=== PATIENT | female | born 1980 | race Caucasian/White ===

== ENCOUNTER 2021-07-06 15:44 | Outpatient (CLI) | payer BC, SELFPAY ==
[2021-07-12 20:20] LABS: HPV APTIMA, High Risk Negative (Negative)
== END 2021-07-06 23:59 | disposition short-term general hospital (02) ==
LOC: LABSPEC 15:46
PROVIDERS: Referring Provider Nurse Practitioner Women's Health; Visit Provider Nurse Practitioner Women's Health
DX: N93.9 Abnormal uterine and vaginal bleeding, unspecified (principal)
CPT/HCPCS: 87624; 88175; G0145

== ENCOUNTER 2021-08-29 13:36 | Outpatient (CLI) | payer BC, SELFPAY ==
--- NOTE | 2021-08-29 13:46 | US_ITS ---
History: [facility] Pelvic ultrasound: Findings: Endovaginal ultrasound imaging of the pelvis demonstrates the uterus to measure 8.4 cm in length and retroverted. Endometrial thickness is 10 mm. 4.5 cm left adnexal cyst noted which may be ovarian or paraovarian in nature. Right ovary is normal in size, echogenicity and perfusion measuring 2.4 x 2.7 x 1.9 cm. No free pelvic fluid. IMPRESSION: 4.5 cm left adnexal cyst. SRU Consensus Conference guidelines (Castañeda, et. al. Radiology 2019;293:359-371) suggest that this follicle or simple cyst is almost certainly benign and no follow-up of this cyst is necessary. at 1105 Reported and signed by: Yuri Zee MD Electronically Signed: Yuri Zee MD at 11:04 EST , US/Pelvic (Non )
--- NOTE | 2021-08-29 13:46 | US_ITS ---
History: [facility] Pelvic ultrasound: Findings: Endovaginal ultrasound imaging of the pelvis demonstrates the uterus to measure 8.4 cm in length and retroverted. Endometrial thickness is 10 mm. 4.5 cm left adnexal cyst noted which may be ovarian or paraovarian in nature. Right ovary is normal in size, echogenicity and perfusion measuring 2.4 x 2.7 x 1.9 cm. No free pelvic fluid. IMPRESSION: 4.5 cm left adnexal cyst. SRU Consensus Conference guidelines (Castañeda, et. al. Radiology 2019;293:[id number]) suggest that this follicle or simple cyst is almost certainly benign and no follow-up of this cyst is necessary. at 1105 Reported and signed by: Yuri Zee MD Electronically Signed: Yuri Zee MD at 11:04 EST , US/Transvaginal Non-
== END 2021-08-29 23:59 | disposition home or self-care (01) ==
PROVIDERS: Visit Provider Nurse Practitioner Women's Health
DX: N93.9 Abnormal uterine and vaginal bleeding, unspecified (principal)
CPT/HCPCS: 76830; 76856

== ENCOUNTER 2023-03-04 18:33 | Emergency (ER) | payer OTHER, SELFPAY ==
[2023-03-04] VITALS (7 sets, daily range): BP systolic 108–134; BP diastolic 66–81; PULSE 76–109; RESP 18–27; TEMP 36.1–36.6; O2SAT 96–100; BMI 26.6
--- NOTE | 2023-03-04 18:57 | EX.ED.GENINJ ---
HPI History of Present Illness Chief Complaint: Disclocation Informant: patient and spouse/S.O. Narrative Narrative: 43-year-old female states that about 1 hour prior to arrival she did a back flip off a floating dock. She states that she has a history of bilateral shoulder dislocations. She last dislocated her right shoulder about 2 weeks ago in her sleep. She states that typically she can get her shoulders back in the joint with some assistance by her significant other but was unable to do so this time. She has had 1 alcoholic drink today. She has not had anything to eat or drink for the past at least 3 hours. She has had no prior problems with anesthesia. She states she has seen Dr. Herron for left shoulder surgery in the past. She states that she was also referred to somebody in [place] for additional evaluation/surgery. She denies any other injuries. She is right-handed. PFSH PFSH Home Medications norethindrone acetate 5 mg tablet (Aygestin) 5 mg PO .COMPLEX #45 tabs 07/06/21 [Rx Last Taken Unknown] albuterol sulfate 90 mcg/actuation aerosol inhaler (ProAir HFA) 2 puff inhalation Q6H PRN shortness of breath or wheezing #8.5 grams 10/10/21 [Rx Last Taken Unknown] azithromycin 250 mg tablet See Rx Instructions PO .COMPLEX #6 tabs 10/10/21 [Rx Last Taken Unknown] hydrocodone-acetaminophen 5-325mg 5mg-325mg 1 tab PO Q6H PRN PRN Pain 3 days #12 TABLETS 03/04/23 [Rx Last Taken Unknown] Allergy/AdvReac Type Severity Reaction Status Date / Time No Known Allergies Allergy Verified 03/04/23 18:35 Family History Father Colon cancer Other Breast cancer Diabetes Hypertension Surgical History H/O shoulder surgery Hx laparoscopic cholecystectomy Social History household members: spouse housing: house current occupational status: employed pets and animals: Yes Smoking Status: Current some day smoker tobacco type: cigarettes second hand exposure: No alcohol intake: current alcohol intake frequency: holidays/special occasions only substance use type: does not use seatbelt use: always do you feel safe at home: Yes additional social history: - Wesley RICHIE ROS ED Constitutional Constitutional ED: Denies chills, fever(s) or weight loss Eyes Eyes: Denies change in vision or diplopia ENT ENT ED: Denies ear pain, rhinorrhea or sore throat Cardiovascular Cardiovascular: Denies chest pain, orthopnea, palpitations or racing heartbeat Respiratory/Chest Respiratory/Chest: Denies cough, dyspnea or orthopnea Gastrointestinal Gastrointestinal: Denies abdominal pain, diarrhea, nausea or vomiting Genitourinary Genitourinary ED: Denies dysuria, hematuria or urinary frequency Musculoskeletal Musculoskeletal: Reports other Details: Right shoulder pain ; Denies arthralgias, back pain, myalgias or neck pain Integumentary Denies abscess or rash Neurologic Neurologic: Denies headache(s) or weakness Psychiatric Psychiatric: Denies anxiety, depression, suicidal ideation or suicidal thoughts Endocrine Endocrinology: Denies polydipsia, polyphagia or polyuria Allergic/Immunologic Allergic/Immunologic ED: Denies mouth swelling, tongue swelling or urticaria EXAM Physical Exam Const Vital Signs: 03/04/23 18:35 03/04/23 20:04 03/04/23 20:05 Temperature 96.9 F L 97.9 F Temperature Source Temporal Pulse Rate 109 H 83 Pulse Rate [1 (Initial Baseline)] 83 Pulse Rate [2] 81 Pulse Rate [3] 80 Respiratory Rate 18 27 H Respiratory Rate [1 (Initial Baseline)] 27 H Respiratory Rate [2] 20 H Respiratory Rate [3] 20 H Blood Pressure 124/76 H 134/77 H Blood Pressure [1 (Initial Baseline)] 134/77 H Blood Pressure [2] 134/73 H Blood Pressure [3] 130/72 H Blood Pressure Mean 92 Pulse Ox 100 100 Oxygen Delivery Method Room Air Nasal Cannula Oxygen Delivery Method [1 (Initial Baseline)] Nasal Cannula Oxygen Delivery Method [2] Nasal Cannula Oxygen Delivery Method [3] Nasal Cannula Oxygen Flow Rate (L/min) 2 Oxygen Flow Rate (L/min) [1 (Initial Baseline)] 2 Oxygen Flow Rate (L/min) [2] 2 Oxygen Flow Rate (L/min) [3] 2 03/04/23 20:15 03/04/23 20:19 03/04/23 20:25 Temperature Temperature Source Pulse Rate Pulse Rate [1 (Initial Baseline)] Pulse Rate [2] Pulse Rate [3] Respiratory Rate Respiratory Rate [1 (Initial Baseline)] Respiratory Rate [2] Respiratory Rate [3] Blood Pressure Blood Pressure [1 (Initial Baseline)] Blood Pressure [2] Blood Pressure [3] Blood Pressure Mean Pulse Ox Oxygen Delivery Method Room Air Room Air Room Air Oxygen Delivery Method [1 (Initial Baseline)] Oxygen Delivery Method [2] Oxygen Delivery Method [3] Oxygen Flow Rate (L/min) Oxygen Flow Rate (L/min) [1 (Initial Baseline)] Oxygen Flow Rate (L/min) [2] Oxygen Flow Rate (L/min) [3] Positive well nourished and well developed General Appearance ED: well developed HEENT Reports normocephalic, head/scalp atraumatic and moist mucous membranes Eyes PERRL and EOMs intact bilaterally Neck no lymphadenopathy, supple and no JVD Resp normal respiratory effort and clear to auscultation bilaterally Cardio regular rate, regular rhythm and no murmurs GI normal to inspection, nondistended, normoactive bowel sounds and non-tender Palpation: soft Back/Spine no CVA tenderness, normal ROM, normal to inspection and no thoracic nor lumbar tenderness Extremity Extremity Narrative: Right shoulder tender to palpation. Limited range of motion. She holds the arm flexed at the elbow and internally rotated against the body. Neurovascular intact distal. General Extremety ED: Negative for edema General Extremity: Negative for edema Neuro oriented x3 and CN's II-XII intact bilaterally Neuro Narrative: Sensory exam is normal Sensorium / Orientation: alert Motor Exam: strength 5/5 throughout Psych mental status grossly normal Mood & Affect: Negative for depressed or tearful Skin no rashes or lesions noted and no wounds PROC Procedures Procedural Sedation 1 (Initial Baseline): Consent Signed: Yes Any Problems With Anesthesia: No You/Your family experience fever (hyperthermia) w/anesthesia: No Sedation medication: Propofol Dose: 1 (mg/kg) Route: IV Total Moderate Sedation Units: 64 (mg) Maliampati Score: Class II ASA Classification: I MDM MDM MDM Narrative Medical decision making narrative: My interpretation of the plain films of the right shoulder demonstrates a anterior shoulder dislocation. Patient received morphine and Zofran. provided written informed consent and patient provided oral informed consent for the use of propofol for procedural sedation for the closed reduction of shoulder dislocation. Patient was prepped for procedural sedation in the usual manner. She received supplemental oxygen. Timeout was performed. Patient received 1 mg/kg bolus of propofol followed by 0.5 mg/kg bolus until adequate sedation was achieved and maintained. Using gentle traction and using the Milch technique the shoulder was easily reduced. Patient was placed in a sling and swath. She was allowed to recover without incident. There is no hypotension apnea or hypoxemia events noted during procedure. She remains neurovascular intact. My interpretation of the plain films of the postreduction shoulder are adequate reduction of the humerus. I will write for the patient for pain medication at home. She is to follow-up with orthopedics. History & Record Review Discussion w/independent historian: Patient and Significant other Radiography Diagnostic Testing: Clinical Impression(s) from Imaging Studies Shoulder X-Ray 03/04/23 19:00 IMPRESSION: Medial shoulder dislocation. Electronically Signed: Manjinder Caba MD at 19:18 EDT , Shoulder X-Ray 03/04/23 20:25 IMPRESSION: Successful reduction Electronically Signed: Manjinder Caba MD at 20:38 EDT , Discharge Plan Triage Chief Complaint: Disclocation ED Provider: Magdiel Anaya Dx/Rx/DC Orders Clinical Impression: Anterior dislocation of right shoulder Instructions: ED Dislocation: Shoulder (Reduced), ED Sling and Swathe Prescriptions: New hydrocodone-acetaminophen [hydrocodone-acetaminophen] 5-325 mg tablet 1 tab PO Q6H PRN PRN (Reason: Pain) 3 Days Qty: 12 0RF No Action norethindrone acetate [Aygestin] 5 mg tablet 5 mg PO .COMPLEX Qty: 45 0RF Rx Instructions: 5 mg PO tid until bleeding stops X 24 hr then bid to finish Rx azithromycin 250 mg tablet See Rx Instructions PO .COMPLEX Qty: 6 0RF Rx Instructions: take 500 mg today (day 1), then 250 mg for 4 days (days 2-5) PO albuterol sulfate [ProAir HFA] 90 mcg/actuation HFA aerosol inhaler 2 puff inhalation Q6H PRN (Reason: shortness of breath or wheezing) Qty: 8.5 0RF Primary Care Provider: Care Physician,No Primary Referrals: Farhad Herron DO [Med Staff - Active Staff] - As soon as possible Care Physician,No Primary [Primary Care Provider] -
[2023-03-04] MEDS: Morphine 4 MG/ML Syringe IV (18:58)
[2023-03-04] MEDS: Ondansetron 4 MG/2 ML Vial IV (18:58)
--- NOTE | 2023-03-04 19:00 | RAD_ITS ---
STUDY: XR Shoulder Min 2 Views REASON FOR EXAM: Female, 43 years old. dislocation TECHNIQUE: XR Shoulder Min 2 Views RIGHT COMPARISON: None. FINDINGS: Medial shoulder dislocation. Normal acromioclavicular joint. Normal acromion. Normal humeral head and visualized proximal humerus. The soft tissue structures are unremarkable. Normal visualized pulmonary apex. RAD/Shoulder min 2 Views IMPRESSION: Medial shoulder dislocation. Electronically Signed: Manjinder Caba MD at 19:18 EDT ,
--- NOTE | 2023-03-04 20:25 | RAD_ITS ---
STUDY: XR Shoulder Min 2 Views REASON FOR EXAM: Female, 43 years old. Reduction TECHNIQUE: XR Shoulder Min 2 Views RIGHT COMPARISON: Study done earlier. FINDINGS: Normal glenohumeral articulation. Normal acromioclavicular joint. Normal acromion. Normal humeral head and visualized proximal humerus. The soft tissue structures are unremarkable. Normal visualized pulmonary apex. RAD/Shoulder min 2 Views IMPRESSION: Successful reduction Electronically Signed: Manjinder Caba MD at 20:38 EDT ,
[2023-03-04] MEDS: Propofol 200 MG/20 ML Vial IV BOLUS (20:45)
== END 2023-03-04 21:30 | disposition home or self-care (01) ==
LOC: ED 19:14
PROVIDERS: Emergency Provider Emergency Medicine; Visit Provider Emergency Medicine
DX: S43.014A Anterior dislocation of right humerus, initial encounter (principal); Y93.39 Activity, other involving climbing, rappelling and jumping off; X58.XXXA Exposure to other specified factors, initial encounter; F17.210 Nicotine dependence, cigarettes, uncomplicated
CPT/HCPCS: 23650; 73030; 96374; 96375; 99285; J7030; A4216; J2405

== ENCOUNTER 2024-04-12 12:54 | Emergency (ER) | payer OTHER, SELFPAY ==
[2024-04-12 12:54] VITALS: BP 121/77; PULSE 96; RESP 16; TEMP 36.7; O2SAT 100; BMI 25.3
--- NOTE | 2024-04-12 13:15 | RAD_ITS ---
STUDY: X-RAY - RIGHT SHOULDER REASON FOR EXAM: Female, 44 years old. Dislocated TECHNIQUE: 2 view(s) of the shoulder. COMPARISON: Including March 04, 2023 FINDINGS: There is anterior inferior dislocation at the glenohumeral articulation. Normal acromioclavicular joint. Normal acromion. Normal humeral head and visualized proximal humerus. The soft tissue structures are unremarkable. There is no displaced fracture seen. Normal visualized pulmonary apex. RAD/Shoulder min 2 Views IMPRESSION: Recurrent glenohumeral dislocation. Electronically Signed: Adán Lorenzo MD at 14:02 EDT ,
--- NOTE | 2024-04-12 13:18 | EDS_ITS ---
HPI History of Present Illness HPI Narrative: 44-year-old female dislocated her right shoulder. She is left-hand dominant. She has a history of bilateral shoulder dislocations is already had surgery to repair of the left and has pending upcoming surgery for the right. She was just putting her close on today when she dislocated her shoulder. Denies any fall or injury. No other complaints. Chief Complaint: Upper Extremity Injury Informant: patient and spouse/S.O. Onset/Context/Timing Onset: Today Context: Sudden Onset Timing: Continuous Quality of Pain: Sharp Current Severity: Moderate Maximum Severity: Moderate Associated Symptoms Associated Symptoms: Negative for Parasthesia or Weakness Narrative Narrative: 44-year-old female dislocated her right shoulder putting on her close today. She has a history of bilateral shoulder dislocations. Denies any other complaints. Prior similar symptoms: Yes Recent Illness/Hospitalization: No PFSH PFSH Home Medications ?Medication ?Instructions ?Recorded ?Last Taken ?Type norethindrone acetate 5 mg tablet 5 mg PO .COMPLEX #45 tabs 07/06/21 Unknown Rx (Aygestin) albuterol sulfate 90 mcg/actuation 2 puff inhalation Q6H PRN 10/10/21 Unknown Rx aerosol inhaler (ProAir HFA) shortness of breath or wheezing #8.5 grams azithromycin 250 mg tablet See Rx Instructions PO .COMPLEX #6 10/10/21 Unknown Rx tabs hydrocodone-acetaminophen 5-325mg 1 tab PO Q6H PRN PRN Pain 3 days 03/04/23 Unknown Rx 5mg-325mg #12 TABLETS Allergy/AdvReac Type Severity Reaction Status Date / Time No Known Allergies Allergy Verified 04/12/24 12:54 Family History Father Colon cancer Other Breast cancer Diabetes Hypertension Surgical History Hx laparoscopic cholecystectomy H/O shoulder surgery Social History household members: spouse housing: house current occupational status: employed pets and animals: Yes Smoking Status: Current some day smoker tobacco type: cigarettes second hand exposure: No alcohol intake: current alcohol intake frequency: holidays/special occasions only substance use type: does not use seatbelt use: always do you feel safe at home: Yes additional social history: - Wesley QUIROZ ROS ED ROS Narrative Denies recent illness. Constitutional Constitutional ED: Denies fever(s) Eyes Eyes: Denies blurry vision ENT ENT ED: Denies ear pain Cardiovascular Cardiovascular: Denies chest pain Respiratory/Chest Respiratory/Chest: Denies cough Gastrointestinal Gastrointestinal: Denies abdominal pain Genitourinary Genitourinary ED: Denies dysuria Musculoskeletal Musculoskeletal: Denies back pain Integumentary Denies abscess Neurologic Neurologic: Denies headache(s) Psychiatric Psychiatric: Denies anxiety Endocrine Endocrinology: Denies cold intolerance Hematologic/Lymphatic Hematologic/Lymphatic: Denies easy bleeding Allergic/Immunologic Allergic/Immunologic ED: Denies mouth swelling EXAM Physical Exam Narrative Exam Narrative: Well-appearing 44-year-old female. Vital signs stable afebrile. HEENT exam unremarkable. Neck nontender. Lungs clear to auscultation bilaterally. Heart regular rate and rhythm rate about 95 no murmur. Chest wall and ribs nontender. Abdomen soft nontender. Back nontender. Left upper and both lower extremities are nontender normal range of motion. Right shoulder she has it flexed and internally rotated. She has a right elbow flexed. Her right hand is neurovascularly intact with 5 out of 5 hand hose cutter strength. Touch sensation. Radial pulse. She will not move the right upper arm due to the pain in the shoulder. She is awake and alert. Const Vital Signs: 04/12/24 12:54 Temperature 98.1 F Temperature Source Oral Pulse Rate 96 Respiratory Rate 16 Blood Pressure 121/77 H Blood Pressure Mean 91 Pulse Ox 100 Oxygen Delivery Method Room Air Positive well nourished and well developed; Negative for obese, cachectic, contractures or unkempt General Appearance ED: well developed; Negative for unkempt, cachectic, contractures, cyanotic, diaphoretic or NAD Nutritional Appearance: Negative for cachectic or obese HEENT Reports moist mucous membranes normocephalic and atraumatic; Negative for trauma or tenderness Eyes PERRL and EOMs intact bilaterally Neck full ROM and supple General: Negative for tenderness Lymph Lymphatic: Negative for other Chest Wall inspection of chest normal and palpation of chest normal Chest: Negative for other Resp clear to auscultation bilaterally Auscultation: Negative for rales, rhonchi, wheezes or diminished lung sounds Cardio regular rate, regular rhythm, S1 normal heart sound, S2 normal heart sound and no murmurs Rate: Negative for bradycardia or tachycardic Rhythm: Negative for abnormal rhythm GI non-tender, non-distended and no masses Inspection: Negative for abdominal distention Auscultation: normoactive bowel sounds Palpation: soft; Negative for tender, guarding or rebound tenderness present Back/Spine no CVA tenderness General Back: Negative for CVA tenderness Cervical Spine: Negative for cervical spine tenderness Thoracic Spine / Upper Back: Negative for thoracic spinal tenderness Lumbar Spine / Lower Back: Negative for lumbar spinal tenderness Extremity normal to inspection and full ROM Extremity Narrative: Except right shoulder. Dislocated. Will not move the right shoulder due to pain. Right elbow, forearm and hand are nontender neurovascular intact with normal hand hose cutter strength. Normal radial pulse. General Extremety ED: Negative for edema or other findings General Extremity: Negative for edema or other findings Neuro oriented x3, CN's II-XII intact bilaterally and moves all extremities Sensorium / Orientation: alert, oriented to person, oriented to place and oriented to time Motor Exam: strength 5/5 throughout Psych mental status grossly normal Appearance: Negative for unkempt Attitude: No agitated Mood & Affect: Negative for depressed Skin General Skin Exam: Negative for petechiae Lesions: no lesions Rashes: no rashes Trauma: no lacerations or abrasions MDM MDM MDM Narrative Medical decision making narrative: 44-year-old female history of shoulder dislocations. She dislocated her right shoulder. On her close today. IV morphine for pain. Zofran. X-ray. Then we will consciously sedate her for reduction of her right shoulder dislocation. Post procedural sedation patient awake and alert acting normally 20 minutes after the procedure. Currently pain-free. After successful reduction. Repeat exam at 3:19 PM she is awake alert doing well. She will be discharged to home. She has a sling on. She has outpatient orthopedic follow-up. History & Record Review Discussion w/independent historian: Patient and Family Additional record(s) reviewed:: Prior inpatient record, Prior outpatient record, Prior ED visit and Prior labs Radiography Diagnostic Testing: Right shoulder x-ray, 2 views, interpreted by myself shows a anterior inferior shoulder dislocation. No fracture. Post right shoulder reduction x-ray Procedures Procedural Sedation 1 (Initial Baseline): Consent Signed: Yes Any Problems With Anesthesia: No You/Your family experience fever (hyperthermia) w/anesthesia: No Sedation medication: Propofol Dose: 110 Route: IV Total Moderate Sedation Units: 20 Maliampati Score: Class II ASA Classification: I Comment:: Patient sedated with propofol. Procedural sedation per protocol. Initially given 70 mg IV of propofol. She was still resisting reduction. She was given 4 mg more propofol for total of 110 mg. Good sedation was obtained. She was on monitor the entire time. She was easily reduced using traction countertraction. Nurses are placing her in a sling. Her vital signs and pulse ox remained stable the entire time. Discharge Plan Triage Chief Complaint: Upper Extremity Injury ED Provider: Abelardo Bray Dx/Rx/DC Orders Clinical Impression: Anterior dislocation of right shoulder Instructions: ED Dislocation: Shoulder (Reduced) Prescriptions: No Action norethindrone acetate [Aygestin] 5 mg tablet 5 mg PO .COMPLEX Qty: 45 0RF Rx Instructions: 5 mg PO tid until bleeding stops X 24 hr then bid to finish Rx azithromycin 250 mg tablet See Rx Instructions PO .COMPLEX Qty: 6 0RF Rx Instructions: take 500 mg today (day 1), then 250 mg for 4 days (days 2-5) PO albuterol sulfate [ProAir HFA] 90 mcg/actuation HFA aerosol inhaler 2 puff inhalation Q6H PRN (Reason: shortness of breath or wheezing) Qty: 8.5 0RF hydrocodone-acetaminophen [hydrocodone-acetaminophen] 5-325 mg tablet 1 tab PO Q6H PRN PRN (Reason: Pain) 3 Days Qty: 12 0RF Primary Care Provider: Care Physician,No Primary Referrals: Dung Almaraz DO [Med Staff - Active Staff] - As soon as possible Care Physician,No Primary [Primary Care Provider] - Activity Restrictions/Additional Instructions: Ice to your shoulder. Motrin and Tylenol for pain. You can take your sling off to bathe and sleep. Be very careful you could easily read dislocate this. Follow-up with Dr. Almaraz. Print Language: Hebrew Disposition Disposition: Home, Self Care
[2024-04-12] MEDS: Ondansetron 4 MG/2 ML Vial IV (13:27)
[2024-04-12] MEDS: morphine 8 MG/ML Syringe IV (13:27)
[2024-04-12] MEDS: Propofol 200 MG/20 ML Vial 60 MG IV BOLUS (13:42)
--- NOTE | 2024-04-12 13:55 | RAD_ITS ---
STUDY: X-RAY - RIGHT SHOULDER REASON FOR EXAM: Female, 44 years old. Post reduction TECHNIQUE: 2 view(s) of the shoulder. COMPARISON: None. FINDINGS: Normal glenohumeral articulation. There is reduction of previously seen dislocation. Normal acromioclavicular joint. Normal acromion. There is Hill-Sachs deformity of the humeral head. The soft tissue structures are unremarkable. Normal visualized pulmonary apex. RAD/Shoulder min 2 Views IMPRESSION: Reduction of dislocation. Electronically Signed: Adán Lorenzo MD at 14:49 EDT ,
[2024-04-12 14:05] VITALS: BP 132/105; PULSE 110; RESP 16; TEMP 36.6; O2SAT 100
[2024-04-12 14:06] VITALS: BP 144/86; PULSE 110; RESP 16; O2SAT 100
[2024-04-12 14:09] VITALS: BP 102/89; O2SAT 100
[2024-04-12 14:11] VITALS: BP 113/80; O2SAT 100
[2024-04-12 15:06] VITALS: BP 123/105; PULSE 91; RESP 16; TEMP 36.8; O2SAT 99
== END 2024-04-12 15:41 | disposition home or self-care (01) ==
PROVIDERS: Emergency Provider Emergency Medicine; Visit Provider Emergency Medicine
DX: S43.014A Anterior dislocation of right humerus, initial encounter (principal); X58.XXXA Exposure to other specified factors, initial encounter; Y93.89 Activity, other specified; F17.210 Nicotine dependence, cigarettes, uncomplicated; Z79.899 Other long term (current) drug therapy
CPT/HCPCS: 23650; 73030; 96374; 96375; 99152; 99283; A4216; J2405

== ENCOUNTER → 2024-06-03 | Outpatient (CLI) | payer OTHER, SELFPAY ==
[2024-06-03 16:27] LABS: Absolute Lymphocyte Count 2.47 X10^3/uL (0.83-4.51); Absolute Neutrophil Count 6.5 X10^3/uL (2.0-7.7); Basophil# 0.08 X10^3/uL; Basophil% 0.8 % (0-1); Eosinophil# 0.07 X10^3/uL; Eosinophils% 0.7 % (0-5); Hematocrit 40.5 % (37-47); Hemoglobin 13.5 g/dL (12.0-15.0); Lymphocyte # 2.47 X10^3/ul (0.83-4.51); Lymphocyte % 25.4 % (19-41); Mean Corp Hgb Conc 33.3 g/dL (32-36); Mean Corpuscular Hgb 31.5 pg (27.0-32.0); Mean Corpuscular Volume 94.4 fL (81-99); Mean Platelet Vol. 9.5 fl (6.2-12.0); Monocyte# 0.56 X10^3/uL; Monocyte% 5.7 % (0-10); NRBC Flagged by Analyzer 0 % (0-5); Neutrophil # 6.52 X10^3/uL (2.7-7.7); Platelet Count 371 K/mm3 (150-450); RBC Distribution Width CV 13.1 % (11.6-14.6); RBC Distribution Width SD 44.6 fl (35.1-43.9); Red Blood Count 4.29 M/mm3 (4.2-5.4); White Blood Count 9.7 K/mm3 (4.4-11.0)
[2024-06-03 17:02] LABS: Anion Gap 5 (5-15); BUN 13 mg/dL (7-18); BUN/Creat Ratio 12.6 RATIO (10-20); Calcium,Total 9.4 mg/dL (8.5-10.1); Chloride 109 mmol/L (98-107); Creatinine, Serum 1.03 mg/dL (0.55-1.02); EST Glomerular Filtration Rate 62 mL/min (>60); Est Glom Filt Rate - Afr Amer 76 mL/min (>60); Glucose 117 mg/dL (74-106); Potassium 4.3 mmol/L (3.5-5.1); Sodium Level 140 mmol/L (136-145)
== END | disposition home or self-care (01) ==
PROVIDERS: Referring Provider Physician Assistant Surgical; Visit Provider Physician Assistant Surgical
DX: Z01.818 Encounter for other preprocedural examination (principal)
CPT/HCPCS: 36415; 80048; 85025

== ENCOUNTER 2024-06-18 11:18 | Day surgery (SDC) | payer OTHER, SELFPAY ==
[2024-06-18] VITALS (7 sets, daily range): BP systolic 110–120; BP diastolic 63–96; PULSE 63–99; RESP 16; TEMP 36–37; O2SAT 99–100; BMI 27.5
--- NOTE | 2024-06-18 11:36 | PCM.PRE.AN2 ---
ASA Classification* ASA Classification ASA Classification: 2 Assessment & Plan Anesthesia* Anesthesia Assessment Anesthesia Assessment: Discussed sedation and/or anesthesia options, risks, benefits, and alternatives with patient/parents/legal guardian/POA. Questions invited. The patient/parents/legal guardian/POA seems to understand and agrees to proceed with anesthesia plan. Reviewed the physical assessment, medical history, allergy history and patient home medications list prior to surgery/procedure/anesthetic and documented any changes. Performed airway and anesthesia risk assessments. Anesthesia Type Anesthesia Type: General and Block Anesthesia Focused Assessment* Airway Assessment Mouth opens: >3 cm Mallampati Score: II Focused Labs Anesthesia Preop lab: CBC WBC 9.7 K/mm3 (4.4-11.0) 06/03/24 16:01 RBC 4.29 M/mm3 (4.2-5.4) 06/03/24 16:01 Hgb 13.5 g/dL (12.0-15.0) 06/03/24 16:01 Hct 40.5 % (37-47) 06/03/24 16:01 Plt Count 371 K/mm3 (150-450) 06/03/24 16:01 CHEMISTRY Potassium 4.3 mmol/L (3.5-5.1) 06/03/24 16:01 Sodium 140 mmol/L (136-145) 06/03/24 16:01 BUN 13 mg/dL (7-18) 06/03/24 16:01 Creatinine 1.03 mg/dL (0.55-1.02) H 06/03/24 16:01 Glucose 117 mg/dL (74-106) H 06/03/24 16:01 TSH 2.27 uIU/mL (0.358-3.74) 10/15/12 17:00 COAG Pre-Assessment Diagnosis/Proposed Procedure Planned Operative Procedure(s): RIGHT SHOULDER ARTHROSCOPY WITH LABRAL REPAIR Anesthesia History 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 When Was Last Pacemaker Check QUESTION #4 FULL TEXT: You/Your Family Experience fever (hyperthermia) with Anesthesia Last Oral Intake Last Oral intake: Last Oral Intake NPO since Meds taken in AM with sips of water? Meds patient instructed to take am of surgery PONV PONV - wood room supervisor: PONV - wood room supervisor Female Yes 06/17/24 10:35 HX of Motion Sickness No 06/17/24 10:35 HX of N/V After Surgery No 06/17/24 10:35 Non-Smoker Yes 06/17/24 10:35 Duration of Surgery greater Yes 06/17/24 10:35 than 60 minutes Number of Risk Factors 3 06/17/24 10:35 PONV Score Moderate Risk 06/17/24 10:35 Height & Weight Height & Weight: Anesthesia: Height & Weight Height 5 ft 1 in 06/17/24 11:38 Weight: 66.224 kg 06/17/24 11:38 Respiratory Assessment Respiratory Assessment - wood room supervisor: Respiratory Tract Infection Hx - wood room supervisor Hx Respiratory Tract Infection No 06/17/24 10:35 STOP Sleep Apnea STOP Sleep Apnea - wood room supervisor: STOP Sleep Apnea - wood room supervisor Hx Hypertension No 06/17/24 10:35 Hx Sleep Apnea No 06/17/24 10:35 CPAP BIPAP Do you snore loudly (louder No 06/17/24 10:35 than talking or can be heard Do you often feel tired/ No 06/17/24 10:35 fatigued/ sleepy during daytime? Has anyone observed you stop No 06/17/24 10:35 breathing during sleep? STOP Results Negative 06/17/24 10:35 QUESTION #5 FULL TEXT : Do you snore loudly (louder than talking or can be heard through closed doors)? 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 Specify any problems Hx of Preganancy in last 3 No 06/17/24 10:35 Months Nurse Filling Out Transfusion DSCHRIBER 06/17/24 10:35 & Questions: Date: 06/17/24 06/17/24 10:35 Time: 10:36 06/17/24 10:35 Patient unable to answer at this time (ie. confused, unrespo /Reproduction History /Reproductive History - wood room supervisor: /Reproductive Hx- wood room supervisor Hx Now No 06/17/24 10:35 Gestational Age (in weeks): EDC: Hx Hx Para Hx Section SAB No 06/17/24 10:35 Active Medications Active Medications: Current Medications Generic Name Dose Route Start Last Admin Trade Name Freq PRN Reason Stop Dose Admin Cefazolin Sodium 2 gm/ N/A 20 mls @ 400 mls/hr 06/18/24 13:30 IV 06/18/24 13:32 PREOP ONE Sodium Chloride 1,000 mls @ 15 mls/hr 06/18/24 11:30 IV 06/24/24 00:49 .Q48H SUSANNAH Protocol PFSH Medical History Wears glasses Wears contact lenses Alcohol use Low iron Migraine headache Asthma Former smoker Home Medications ?Medication ?Instructions ?Recorded ?Last Taken ?Type albuterol sulfate 90 mcg/actuation 2 puff inhalation Q6H PRN 10/10/21 Unknown Rx aerosol inhaler (ProAir HFA) shortness of breath or wheezing #8.5 grams dextroamphetamine-amphetamine 20 20 mg PO DAILY 06/17/24 Unknown History mg tablet medroxyprogesterone 104 mg/0.65 mL 104 mg subcut .[id number] 06/17/24 Unknown History subcutaneous syringe (Depo-SubQ provera 104) Allergy/AdvReac Type Severity Reaction Status Date / Time No Known Allergies Allergy Verified 06/17/24 10:32 Family History Father Colon cancer Other Breast cancer Diabetes Hypertension Surgical History Hx laparoscopic cholecystectomy H/O shoulder surgery Social History household members: spouse housing: house current occupational status: employed pets and animals: Yes Smoking Status: Former smoker second hand exposure: No alcohol intake: current alcohol intake frequency: holidays/special occasions only substance use type: does not use seatbelt use: always do you feel safe at home: Yes additional social history: - Wesley Review of Systems (Anesthesia) ROS Narrative System reviewed and no additional complaints, except as documented.
[2024-06-18] MEDS: 0.9% Normal Saline (1000mL) 1,000 ML 15 ML IV (11:52)
[2024-06-18 12:10] LABS: Internal QC Validated? YES +Cl - CLEAR BKGD; Pregnancy, Urine Negative Negative
[2024-06-18 12:11] LABS: Record Kit Lot#,Urine Preg 872158
[2024-06-18] MEDS: Epinephrine (1 mg/ml) 1 MG/ML VIAL (13:24)
[2024-06-18] MEDS: Cefazolin 2 GM in Syringe IV (13:55)
--- NOTE | 2024-06-18 16:00 | PCM.POST.ANE ---
Anesthesia: Postop Eval I Current Vital Signs Temperature: 97.4 F Pulse Rate: 63 Blood Pressure: 116/71 Respiratory Rate: 16 Pulse Ox: 100 Assessment Airway patent: Yes Spontaneous unlabored respirations: Yes nausea: No Vomiting: No Anesthesia Complication: No Fluid Hydration Crystalloid volume administer (ml): 500 Total IV fluid infused: 500 Progress Note Anesthesia document: Postop Eval 1 completed: Yes
[2024-06-18] MEDS: Ketorolac 15 MG/ML Vial IV (16:12)
--- NOTE | 2024-06-18 22:16 | OP.PCM_ITS ---
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 lesion Post-Operative Diagnosis: Right shoulder pain instability with labral tear and Hill-Sachs lesion Surgery/Procedure Performed: Right shoulder arthroscopic Bankart labral repair and remplissage compensation director: Yes Automatic Car Wash Attendant: Kyra Trotter Tasks completed by doctor assistant: Opening & closing and Implanting device Additional assistant store manager trainee?: No Type of Anesthesia: General/Regional RN Documented Start/Stop Times: Operation Date: 06/18/24 13:30 Case Time Into Pre-Op 06/18/24 11:28 Anesthesia Start 06/18/24 13:55 Into Room 06/18/24 13:55 Out of Pre-Op 06/18/24 13:55 Procedure Start 06/18/24 14:20 Procedure End 06/18/24 15:25 Anesthesia End 06/18/24 15:31 Out of Room 06/18/24 15:31 Into Recovery 06/18/24 15:35 Out of Recovery 06/18/24 16:09 Into Phase II Recovery 06/18/24 16:10 Out of Phase II 06/18/24 16:53 Procedure Start Time: 14:20 Procedure Stop Time: 15:25 Select all DRAINS/GRAFTS/IMPLANTS that apply: Implanted device Implanted device details: Arthrex push lock anchor x 3, Arthrex fiber tack anchors x 2 Estimated Blood Loss: 10 cc Fluids Replaced: Per anesthesia record Specimen collected: No Description of surgery: Patient was identified in the the surgery holding area. She was identified by name, medical record number, and date of . The operative extremity was marked. All questions were answered patient satisfaction. Interscalene block was administered by anesthesia staff prior to procedure. At time of her procedure, patient was brought to the operative suite and positioned supine on a standard operating table. General anesthesia was induced and endotracheal tube placed. She was then positioned in the lateral decubitus position with the right side up. Axillary roll was placed. All bony prominences were well-padded. Exam under anesthesia revealed significant anterior instability of the right shoulder. We prepped and draped the right upper extremity in normal, sterile orthopedic fashion. Right upper extremity was placed in arthroscopic traction with 15 pounds of traction applied to the arm for approximately 1 hour throughout the arthroscopic portion of the surgery. We performed a timeout confirming the side, site, and operation to be performed. No concerns were voiced and we elected to proceed with surgery. 2 g Ancef was administered IV prior to the incision by anesthesia staff. I then established a standard posterior portal 2 fingerbreadths inferior medial to the posterior lateral border of the scapular spine. Blunt tipped trocar was used to enter the glenohumeral joint. The joint was filled with normal saline with epinephrine. Arthroscope was introduced. Osteochondral lesion was noted over the posterior third of the humeral head with loose chondral fragments. A separate Hill-Sachs lesion which appeared remote was also identified. Bankart chronic labral tearing was noted. I established 2 anterior portals 1 just above the subscapularis and 1 just below the long head of biceps tendon in the rotator interval. Rigid cannulae were placed for suture management. I first of my attention to the osteochondral lesion. Loose chondral fragments were debrided with the arthroscopic shaver. Hill-Sachs lesion was then prepared with gentle size. A ring curette was used to debride the Hill-Sachs lesion. a spinal needle was used to localize a lateral portal for our remplissage technique. 2 fiber tack anchors were then used to ceballos the infraspinatus approximately 1 cm apart within the Hill-Sachs lesion. Sutures were tensioned in standard fashion and left for later remplissage. I then turned my attention to the labrum. The labrum was elevated with a tissue elevator. I debrided the edges of the glenoid with the shaver. I then placed 3 fiber link sutures sequentially from the 5 to 3 o'clock position. Each suture was placed through the eyelet of a push lock anchor and 3 push lock anchors were placed in appropriate position to reestablish the anterior anterior bumper and tension the anterior capsule. Sutures were cut flush with the anchors. Plan return to the remplissage. The repair suture in each anchor was then placed in the self locking mechanism of the other anchor and sequentially tightened. There was good approximation of the infraspinatus within the Hill- Sachs lesion achieving a remplissage. Sutures were cut flush with the anchor. The joint was thoroughly lavaged with normal saline. Instruments and cannulae were removed. Portal sites were closed in interrupted buried fashion with 3-0 nylon suture. Bulky sterile compression dressing was applied. Patient was placed in UltraSling. She was repositioned supine, extubated and safely awakened in the operative suite. She tolerated the procedure well without a pparent complication. Postoperative plan: ESPINAL protocol for anterior instability. Sling x 6 weeks. Physical therapy start in 2 weeks. Will follow-up in 2 weeks for suture removal. Aspirin 81 mg twice daily for DVT prophylaxis. Prescription for oxycodone provided. Tylenol and ibuprofen encouraged. Surgical Findings: Chronic Bankart lesion, anterior instability, osteochondral lesion of the humeral head, Hill-Sachs lesion. Complications Complications: No Admit VTE Documentation VTE Present on Admission: No VTE Mechan Device Prophylaxis: [facility] [place]'s VTE Pharm Prophylaxis ordered?: Yes
--- NOTE | 2024-06-18 23:25 | PCM.POSTANE2 ---
Anesthesia Postop Eval I Sum Anesthesia Postop Eval I Summary Anesthesia Postop Eval I Summary: Anesthesia Postop Eval I: Assessment Summary Airway patent Spontaneous unlabored respirations Mental status nausea Vomiting Anesthesia Postop Eval I: Fluid Summary Crystalloid volume administer (ml) Colloids volume administered ( ml) Blood Product volume administered (ml) Total IV fluid infused Anesthesia Postop Eval I: Summary Notes Anesthesia Complication Anesthesia Complication Comment: Post-operative progress note Anesthesia: Postop Eval II Evaluation Mental status: Awake and Calm Pain Level: 1 nausea: No Vomiting: No Complications Anesthesia Complication: No
[2024-06-19 07:04] VITALS: BP 116/71; PULSE 63; RESP 16; TEMP 36.3; O2SAT 100
== END 2024-06-18 16:54 | disposition home or self-care (01) ==
LOC: SDC 11:22 → AC 11:24
PROVIDERS: Anesthesiology; Referring Provider Student in an Organized Health Care Education/Training Program; Visit Provider Student in an Organized Health Care Education/Training Program
PROC: (CPT 29806; principal; 2024-06-18 13:10)
DX: M25.311 Other instability, right shoulder (principal); F90.9 Attention-deficit hyperactivity disorder, unspecified type; S42.291A Other displaced fracture of upper end of right humerus, initial encounter for closed fracture; X58.XXXA Exposure to other specified factors, initial encounter; S43.431A Superior glenoid labrum lesion of right shoulder, initial encounter
CPT/HCPCS: 29806; 29999; 01630; 81025; J2405